=== PATIENT | male | born 1955 | race Caucasian/White ===

== ENCOUNTER → 2020-07-27 14:17 | Outpatient (REF) | payer OTHER, SELFPAY ==
--- NOTE | 2020-07-27 15:00 | CA_ITS ---
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 The visually estimated ejection fraction is between 60-65%. - There is mildly decreased right ventricular systolic function. - There is mild mitral valve regurgitation. - There is mild tricuspid valve regurgitation. Findings Left Ventricle Normal left ventricular cavity size. There is mildly increased left ventricular wall thickness. The left ventricular systolic function is normal. The visually estimated ejection fraction is between 60-65%. There is no evidence of regional wall motion abnormalities. Diastolic function is normal for age. Right Ventricle Normal right ventricular cavity size. There is mildly decreased right ventricular systolic function. Atria The left atrium is normal in size. The right atrium is normal in size. Aortic Valve There is a normal trileaflet aortic valve. There is no aortic valve stenosis. There is no aortic valve regurgitation. Mitral Valve The mitral valve appears normal. There is mild mitral valve regurgitation. There is no mitral valve stenosis. Pulmonic Valve The pulmonic valve was not well visualized. There is trace pulmonic valve regurgitation. Tricuspid Valve Normal tricuspid valve structure. There is mild tricuspid valve regurgitation. The pulmonary artery systolic pressure is normal. Great Vessels The aortic annulus, sinuses of valsalva, and asc aorta are normal in size. Venous The inferior vena cava is normal in size and collapses greater than 50% with inspiration. Pericardium/Pleural There is no evidence of pericardial effusion. Prior Study Comparison No significant change compared to prior study dated: 09/11/2017. Measurements 2D Linear Measurements RVIDd: 2.89 RVIDd Index: 1.36 IVSd: 0.97 0.6-0.9/0.6-1.0 cm LVIDd: 4.51 3.9-5.3/4.2-5.9 cm LVIDd Index: 2.12 2.4-3.2/2.2-3.1 cm/m2 LVIDs: 3.47 2.0-3.6 cm LVPWd: 1.23 0.7-1.1 cm Ao Root: 3.10 2.1-3.5 cm LA Diam: 4.30 2.7-3.8/3.0-4.0 cm LAIDs Index: 2.02 1.5-2.3 cm/m2 LV Mass: 218.65 67-162/88-224 g LV Mass Index: 102.65 43-95/49-115 g/m2 LVOT Diam: 2.20 3.0+(-)1.3 cm 2D Systolic Function EF 4C: 64.70 >55% EF 2C: 62.90 >55% EF BiP: 64.60 >55% Aortic Valve AoV Pk Adrien: 1.22 AoV Mn Adrien: 0.84 AoV VTI: 0.23 AoV Pk Grad: 6.00 Aov Mn Grad: 3.00 OZIEL Cont.VTI: 2.02 LVOT LVOT Pk Adrien: 0.63 LVOT Mn Adrien: 0.45 LVOT VTI: 0.12 LVOT Pk Grad: 2.00 LVOT Mn Grad: 1.00 LVOT Diam: 2.20 LVOT Area: 3.80 Tricuspid Valve TR Pk Adrien: 2.73 TR Pk Grad: 30.00 RA Press: 3.00 RVSP: 33.00 Great Vessels Aorta Ao Root-2D: 3.10 2.0-3.7 cm Ao Asc: 2.90 2.1-3.4 cm Updated in Other Vendor System with Status of Final Lake Nicole MD electronically signed on 07/27/2020 5:28:27 PM with status of Final
== END ==
LOC: HO.CARD 14:17
PROVIDERS: Visit Provider Internal Medicine
DX: I48.91 Unspecified atrial fibrillation (principal); I48.92 Unspecified atrial flutter; Z98.890 Other specified postprocedural states
CPT/HCPCS: 93306

== ENCOUNTER → 2020-08-26 14:33 | Outpatient (BNVA) | payer OTHER, SELFPAY | PROVIDERS: Visit Provider Internal Medicine | DX: Z76.89 Persons encountering health services in other specified circumstances (principal) ==

== ENCOUNTER 2021-02-26 07:21 | Outpatient (REF) | payer MEDICARE, SELFPAY ==
[2021-02-26 07:50] LABS: Hematocrit 44.9 % (42-52); Hemoglobin 14.8 g/dl (14.0-18.0); Mean Platelet Volume 10.2 fL (9.4-12.4); Platelet Count 144 X10*3/uL (160-400); Red Blood Count 4.63 X10*6/uL (4.60-5.80); Red Cell Distribution Width 12.5 % (11.0-16.0); White Blood Count 6.3 X10*3/uL (4.8-10.8)
[2021-02-26 08:16] LABS: Alanine Aminotransferase 23 U/L (0-40); Albumin Level 3.8 g/dL (3.5-5.0); Alkaline Phosphatase 69 U/L (39-117); Anion Gap 12 (12-20); Aspartate Amino Transferase 18 U/L (5-37); Bilirubin Direct < 0.2 mg/dL (0.0-0.5); Bilirubin Total 0.5 mg/dL (0.0-1.0); Blood Urea Nitrogen 17 mg/dL (9-16); Calcium 8.7 mg/dL (8.4-10.2); Carbon Dioxide 30 mmol/L (22-29); Chloride 105 mmol/L (96-108); Cholesterol 242 mg/dL; Estimated Glomerular Filt Rate 58; Glucose Random 123 mg/dL (60-115); HDL Cholesterol 47 mg/dL; LDL Cholesterol Calculated 147 mg/dl; Potassium 4.9 mmol/L (3.3-5.1); Sodium 142 mmol/L (135-145); Total Protein 6.2 g/dL (6.5-8.0); Triglycerides 240 mg/dL
== END 2021-02-26 07:22 | disposition home or self-care (01) ==
LOC: HO.LAB 07:21
PROVIDERS: Visit Provider Internal Medicine
DX: I48.19 Other persistent atrial fibrillation (principal); E78.5 Hyperlipidemia, unspecified
CPT/HCPCS: 36415; 80048; 80061; 80076; 85027

== ENCOUNTER → 2021-03-01 15:07 | Outpatient (BNVA) | payer MEDICARE, SELFPAY | PROVIDERS: Visit Provider Internal Medicine | DX: I48.19 Other persistent atrial fibrillation (principal); I48.3 Typical atrial flutter; I10 Essential (primary) hypertension; E78.5 Hyperlipidemia, unspecified | CPT/HCPCS: 93005; 99212 ==

== ENCOUNTER → 2021-03-25 14:49 | Outpatient (BNVA) | payer MEDICARE, SELFPAY | PROVIDERS: Visit Provider Urology ==

== ENCOUNTER 2021-08-13 13:44 | Emergency (ER) | payer MEDICARE, SELFPAY ==
[2021-08-13 14:48] VITALS: BP 160/81; PULSE 87; RESP 16; TEMP 36.7; O2SAT 97; BMI 30.4
[2021-08-13] MEDS: Lidocaine HCl 1 % MPF 5 ML VIAL SUBCUT (15:17)
--- NOTE | 2021-08-13 15:44 | ED_ITS ---
HPI - Wound/Laceration General Chief Complaint: Extremity Injury, Upper Stated Complaint: rt thumb laceration Time Seen by Provider: 08/13/21 15:11 Source: patient Mode of arrival: ambulatory Limitations: no limitations History of Present Illness HPI narrative: 66-year-old male presenting to the ED with work related injury while he was working on a table saw at approximately 14:00 and he lacerated his finger with the table saw. He denies any other injury complaints or concerns or thoughts of foreign bodies or bony tenderness. He reports he is up-to-date on tetanus/received 5 years ago. Denies any other injury complaints or concerns. Onset (ago): minute(s) (Prior to arrival) Extremity Location: left: hand (Thumb at the ulnar aspect) Place: work Patient tetanus UTD: Yes Context: accidental Associated symptoms: none Treatments prior to arrival: bandage Related Data Previous Rx's Medication Instructions Recorded pravastatin 20 mg tablet 20 mg PO DAILY #90 tab 08/26/20 rivaroxaban 20 mg tablet (Xarelto) 20 mg PO DAILY #90 tab 08/26/20 lisinopril 5 mg tablet 5 mg PO BID #180 tab 04/16/21 metoprolol tartrate 50 mg tablet 50 mg PO .COMPLEX #90 tab 05/10/21 tamsulosin 0.4 mg capsule 0.4 mg PO BEDTIME 30 Days #30 cap 07/01/21 cephalexin 500 mg capsule 500 mg PO Q6H 10 Days #40 cap 08/13/21 Allergies Allergy/AdvReac Type Severity Reaction Status Date / Time atenolol Allergy Unknown not clear Verified 05/25/21 17:13 if really etiologic but associated w dizzy spell; No Known Allergies Allergy Verified 05/25/21 17:13 [No Known Allergies*] Review of Systems Review of Systems: Constitutional : No Fever, No Chills, Cardiovascular : No Chest Pain, No SOB Respiratory : No Dyspnea Gastrointestinal : No abdominal pain Musculoskeletal : No Joint Swelling Skin : positive skin laceration, No Foreign bodies, No rash, No surrounding erythema Neuro : No Weakness, No Numbness/tingling Psych : No SI/HI/thoughts of self injury Yes all other systems are reviewed and are negative [facility] Past Medical History Attestation statement: The following information was validated with the patient. Medical History Alcohol use disorder Benign prostatic hyperplasia (BPH) with urinary urgency Essential hypertension Ex-smoker Other and unspecified hyperlipidemia Persistent atrial fibrillation Typical atrial flutter Surgical History History of cardioversion Hx of colonoscopy Status post catheter ablation of atrial fibrillation Family History Family History Father Hypertension Cancer Mother Hypertension Social History Social History Housing: House Patient Tobacco Use Status: Former Tobacco user Years Smoked: 30 yrs e-Cigarette/Vaping Use: Never Used Second Hand Smoke Exposure: No Advance Directives: No Advance Directives Information Provided: No service: No Current occupational status: employed 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 Blood pressure hypertensive 160/81 Heart rate normal. Respiration rate normal. Temperature normal. Oxygen saturation normal. Appearance: Alert. Oriented X3. No acute distress. Head: Normal external exam. Normocephalic. Atraumatic. Eyes: PERRLA. EOMI. Conjunctiva and sclera normal. Eyelids normal. ENT: Pharynx normal. Uvula midline. Moist mucous membranes. Neck: Normal inspection. Neck supple. FROM. CVS: Normal heart rate and rhythm. Respiratory: No respiratory distress. Painless inspiration. Skin: Skin warm and dry. Normal skin color. Normal skin turgor. To left hand thumb at the ulnar aspect patient has the 2-3 cm intermediate laceration no foreign bodies or bony tenderness is noted. No active bleeding. He is noted to have contused tissue and hematoma right under the fat pad of the thumb. Otherwise no additional rashes/lesions/lacerations noted. Extremities: No lower extremity edema. Extremities exhibit normal range of motion. Extremities nontender. Neuro: Oriented X 3. No motor deficit. No sensory deficit. Reflexes normal. Normal steady gait. No focal neuro deficits noted. Vascular: + radial pulses/+ 2 distal pedal pulses/+2 dorsalis pedis b/l. Normal cap refill. No cyanosis noted to upper extremity nails and lower extremity toes nails. Course Course Course Narrative: Patient now status post laceration repair with 7 sutures placed. Patient tolerated procedure well. No complications. Patient is obtained and tetanus therefore do not have to give again today. Will place in a pressure dressing and DC home with instructions return if any new or worsening symptoms and to follow-up in 10 days for suture removal and to follow up with Work connection before returning on full duty. Patient understands agrees with this plan. MDM - Wound/Laceration Medical Records Attestation: I reviewed the patient's medical records. Lab Data Attestation: I reviewed the patient's lab results. Procedures Laceration Laceration 1: Site: hand (left thumb ) Side (If applicable): left Size (cm): 3 Description: linear Depth: simple, single layer Local Anesthetic: lidocaine 1% Amount of anesthesia used (mL): 3 Pre-repair: wound explored, irrigated extensively, deep structures intact and wound margins revised Skin layer closed with: nylon Size (cm): 5-0 Number of sutures: 7 Technique: simple, interrupted Discharge Plan Discharge Clinical Impression: Work related injury, Finger laceration Patient Disposition: Home, Self-Care Instructions: Finger Laceration (ED), Return to Work Instructions (ED) Prescriptions: New cephalexin 500 mg capsule 500 mg PO Q6H 10 Days Qty: 40 RF: 0 No Action lisinopril 5 mg tablet 5 mg PO BID Qty: 180 RF: 1 metoprolol tartrate 50 mg tablet 50 mg PO .COMPLEX Qty: 90 RF: 3 tamsulosin 0.4 mg capsule 0.4 mg PO BEDTIME 30 Days Qty: 30 RF: 1 Xarelto 20 mg tablet 20 mg PO DAILY Qty: 90 RF: 4 pravastatin 20 mg tablet 20 mg PO DAILY Qty: 90 RF: 4 Referrals: Magdalena Chacon MD [Primary Care Provider] - 2 days Polina Wyatt PA [Emergency Midlevel Provider] - 10 days (for suture removal ) Stand Alone Forms: Work/School Release Print Language: Senegalese
== END 2021-08-13 16:07 | disposition home or self-care (01) ==
PROVIDERS: Emergency Provider Emergency Medicine; PCP Internal Medicine
DX: S61.012A Laceration without foreign body of left thumb without damage to nail, initial encounter (principal); W29.8XXA Contact with other powered hand tools and household machinery, initial encounter; Y93.9 Activity, unspecified; Y92.9 Unspecified place or not applicable; Y99.9 Unspecified external cause status; Z79.01 Long term (current) use of anticoagulants; Z79.899 Other long term (current) drug therapy
CPT/HCPCS: 12042; 99283; 99284

== ENCOUNTER → 2021-08-17 15:30 | Outpatient (BNVA) | payer MEDICARE, SELFPAY | PROVIDERS: PCP Internal Medicine; Visit Provider Urology | DX: N40.1 Benign prostatic hyperplasia with lower urinary tract symptoms (principal); R39.15 Urgency of urination | CPT/HCPCS: 51798; 99212 ==

== ENCOUNTER 2021-08-23 12:25 | Emergency (ER) | payer OTHER, MEDICARE, SELFPAY ==
--- NOTE | 2021-08-23 14:17 | ED.GENADULT ---
HPI - General Adult General Stated complaint: suture removal Time Seen by Provider: 08/23/21 14:16 Source: patient Mode of arrival: ambulatory Limitations: no limitations History of Present Illness HPI narrative: came in for 7 suture removal from the left thumb. Patient sustained laceration to the left thumb last week on Monday while at work patient required 7 sutures here today for removal. Related Data Previous Rx's Medication Instructions Recorded pravastatin 20 mg tablet 20 mg PO DAILY #90 tab 08/26/20 rivaroxaban 20 mg tablet (Xarelto) 20 mg PO DAILY #90 tab 08/26/20 lisinopril 5 mg tablet 5 mg PO BID #180 tab 04/16/21 metoprolol tartrate 50 mg tablet 50 mg PO .COMPLEX #90 tab 05/10/21 cephalexin 500 mg capsule 500 mg PO Q6H 10 Days #40 cap 08/13/21 oxycodone 5 mg tablet 5 mg PO Q6H PRN #14 tab 08/13/21 tamsulosin 0.4 mg capsule 0.4 mg PO BEDTIME 90 Days #90 cap 08/17/21 Allergies Allergy/AdvReac Type Severity Reaction Status Date / Time atenolol Allergy Unknown not clear Verified 08/17/21 15:33 if really etiologic but associated w dizzy spell; No Known Allergies Allergy Verified 08/17/21 15:33 [No Known Allergies*] Review of Systems Review of Systems: All other systems are reviewed and are negative Constitutional: Reports as per HPI and Reports no additional constitutional complaints Eyes: Reports as per HPI and Reports no additional eye complaints Reports system reviewed and no additional complaints, except as documented Cardiovascular: Reports as per HPI and Reports no additional cardiovascular complaints Respiratory: Reports as per HPI and Reports no additional respiratory complaints Gastrointestinal: Reports as per HPI and Reports no additional gastrointestinal complaints Genitourinary: Reports no additional female genitourinary complaints Musculoskeletal: Reports no additional musculoskeletal complaints Skin/Breast: Reports system reviewed and no additional complaints, except as docu Psychiatric: Reports no additional psychiatric complaints Endocrine: Reports no additional endocrine complaints Hematologic/Lymphatic: Reports no additional hematologic/lymphatic complaints Allergic/Immunologic: Reports no additional allergic/immunologic complaints Reports system reviewed and no additional complaints, except as documented and Reports Abnormal speech present [facility] Past Medical History Medical History Alcohol use disorder Benign prostatic hyperplasia (BPH) with urinary urgency Essential hypertension Ex-smoker Other and unspecified hyperlipidemia Persistent atrial fibrillation Typical atrial flutter Surgical History History of cardioversion Hx of colonoscopy Status post catheter ablation of atrial fibrillation Family History Family History Father Hypertension Cancer Mother Hypertension Social History Social History Housing: House Patient Tobacco Use Status: Former Tobacco user Years Smoked: 30 yrs e-Cigarette/Vaping Use: Never Used Second Hand Smoke Exposure: No Advance Directives: No Advance Directives Information Provided: No service: No Current occupational status: employed 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 Blood pressure normal. Heart rate normal. Respiration rate normal. Temperature normal. Oxygen saturation normal. Appearance: Alert. Oriented X3. No acute distress. Head: Normal external exam. Normocephalic. Atraumatic. No Irizarry signs noted. No raccoon eyes noted Eyes: PERRLA. EOMI. Conjunctiva and sclera normal. Eyelids normal. ENT: TM's Normal. Pharynx normal. Uvula midline. Moist mucous membranes. No trismus noted. No drooling noted. No muffled voice noted. Neck: Normal inspection. Neck supple. FROM. No adenopathy. Thyroid Normal. No meningeal signs. No neck mass noted. CVS: Normal heart rate and rhythm. Heart sound normal. No murmurs noted. Pulses normal throughout. Respiratory: No respiratory distress. Painless inspiration. Breath sounds normal. No wheezes/rales/rhonchi noted. Chest nontender. No accessory muscle usage noted or decreased air movement noted. Abdomen: Soft and nontender. Bowel sounds normal in all 4 quadrants. No distention noted. No organomegaly noted. No visible injury noted. Back: No CVA tenderness. Full range of motion noted. Skin: Skin warm and dry. Normal skin color. Normal skin turgor. No rashes/lesions/lacerations noted. Extremities: Left thumb status post suture removal, Cranial nerve exam: II-XII are grossly intact No motor deficit. No sensory deficit. Reflexes normal. Course Course Course Narrative: assessment and plan. 66-year-old male came in for left thumb laceration recheck and removal of 7 sutures. Wound healing well with no sign of infection. Discharge Plan Discharge Clinical Impression: Encounter for removal of sutures Patient Disposition: Home, Self-Care Instructions: Laceration (ED) Prescriptions: No Action lisinopril 5 mg tablet 5 mg PO BID Qty: 180 RF: 1 metoprolol tartrate 50 mg tablet 50 mg PO .COMPLEX Qty: 90 RF: 3 tamsulosin 0.4 mg capsule 0.4 mg PO BEDTIME 90 Days Qty: 90 RF: 3 cephalexin 500 mg capsule 500 mg PO Q6H 10 Days Qty: 40 RF: 0 oxycodone 5 mg tablet 5 mg PO Q6H PRN (Reason: pain) Qty: 14 RF: 0 Xarelto 20 mg tablet 20 mg PO DAILY Qty: 90 RF: 4 pravastatin 20 mg tablet 20 mg PO DAILY Qty: 90 RF: 4 Referrals: Magdalena Chacon MD [Primary Care Provider] - 2 days
--- NOTE | 2021-08-23 14:19 | PC.NURSE ---
pr doctor Bactracin put on wound with bandaid pt tolorated well
[2021-08-23 14:33] VITALS: BP 162/92; PULSE 70; RESP 14; TEMP 35.8; O2SAT 98; BMI 30.8
== END 2021-08-23 14:37 | disposition home or self-care (01) ==
PROVIDERS: Emergency Provider Emergency Medicine; PCP Internal Medicine
DX: S61.012D Laceration without foreign body of left thumb without damage to nail, subsequent encounter (principal); X58.XXXD Exposure to other specified factors, subsequent encounter
CPT/HCPCS: 99283

== ENCOUNTER → 2021-08-31 15:07 | Outpatient (BNVA) | payer MEDICARE, SELFPAY | PROVIDERS: PCP Internal Medicine; Referring Provider Internal Medicine; Visit Provider Internal Medicine | DX: I48.19 Other persistent atrial fibrillation (principal); I48.3 Typical atrial flutter; I10 Essential (primary) hypertension; E78.5 Hyperlipidemia, unspecified | CPT/HCPCS: 99212 ==

== ENCOUNTER → 2022-08-19 15:28 | Outpatient (BNVA) | payer MEDICARE, OTHER, SELFPAY | PROVIDERS: PCP Internal Medicine; Visit Provider Urology | DX: N40.1 Benign prostatic hyperplasia with lower urinary tract symptoms (principal); R39.15 Urgency of urination | CPT/HCPCS: 99212 ==

== ENCOUNTER → 2022-10-03 12:50 | Outpatient (BNVA) | payer MEDICARE, SELFPAY | PROVIDERS: PCP Internal Medicine; Referring Provider Internal Medicine; Visit Provider Internal Medicine | DX: I48.19 Other persistent atrial fibrillation (principal); I48.3 Typical atrial flutter; I10 Essential (primary) hypertension; E78.5 Hyperlipidemia, unspecified; Z79.01 Long term (current) use of anticoagulants; Z79.899 Other long term (current) drug therapy | CPT/HCPCS: 93005; 99212 ==

== ENCOUNTER 2022-11-24 11:31 | Outpatient (REF) | payer MEDICARE, SELFPAY ==
[2022-11-24 12:30] LABS: Alanine Aminotransferase 38 U/L (0-40); Alkaline Phosphatase 58 U/L (39-117); Anion Gap 12 (12-20); Aspartate Amino Transferase 26 U/L (5-37); Bilirubin Total 0.9 mg/dL (0.0-1.0); Blood Urea Nitrogen 19 mg/dL (9-16); Calcium 9.1 mg/dL (8.4-10.2); Carbon Dioxide 30 mmol/L (22-29); Chloride 103 mmol/L (96-108); Cholesterol 263 mg/dL; Estimated Glomerular Filt Rate 48; Glucose Random 145 mg/dL (60-115); HDL Cholesterol 51 mg/dL; LDL Cholesterol Calculated 168 mg/dl; Sodium 140 mmol/L (135-145); Total Protein 6.5 g/dL (6.5-8.0); Triglycerides 220 mg/dL
[2022-11-24 12:39] LABS: Hematocrit 46.6 % (42.0-52.0); Hemoglobin 15.7 g/dl (14.0-18.0); Mean Corpuscular HGB Conc 33.7 g/dl (31.0-36.0); Mean Corpuscular Hemoglobin 32.6 pg (27.0-33.0); Mean Corpuscular Volume 96.7 fL (80.0-98.0); Mean Platelet Volume 10.3 fL (9.4-12.4); Platelet Count 163 X10*3/uL (160-400); Red Blood Count 4.82 X10*6/uL (4.60-5.80); Red Cell Distribution Width 12.8 % (11.0-16.0); White Blood Count 7.6 X10*3/uL (4.8-10.8)
== END 2022-11-24 11:32 | disposition home or self-care (01) ==
LOC: HO.LAB 11:31
PROVIDERS: PCP Internal Medicine; Visit Provider Internal Medicine
DX: I48.19 Other persistent atrial fibrillation (principal); E78.5 Hyperlipidemia, unspecified
CPT/HCPCS: 36415; 80053; 80061; 85027

== ENCOUNTER → 2022-11-30 13:27 | Outpatient (REF) | payer MEDICARE, SELFPAY ==
--- NOTE | 2022-11-30 13:31 | CA_ITS ---
Transthoracic Echocardiogram Patient (Last, First, Middle): Narinder [place] P Gender: Male Date of : 1955 Age: 67 Procedure Date: 11/30/2022 Procedure Type: Transthoracic Echocardiogram Location: OP Height: 177.8 cm Weight: 97.07 kg BSA: 2.15 m2 Heart Rate: 78 bpm BP: 115 / 70 mmHg Senior Mobile Web Developer: NAZ Estrada MD: Lake Nicole MD System Programmer: Man Rees MD Symptoms: I48.19 - Other persistent atrial fibrillation Study Quality: Fair ECG Rhythm: Atrial Fibrillation Conclusions: - 1. Low normal LV systolic function with LVEF of 50-55% 2. Normal cardiac valvular Doppler 3. Normal measured RV systolic pressure 4. No gross pericardial effusion Findings Left Ventricle Normal left ventricular cavity size. There is normal left ventricular wall thickness. The left ventricular systolic function is low normal. The visually estimated ejection fraction is between 50-55%. Diastolic function is indeterminate on the basis of available data. Right Ventricle Normal right ventricular cavity size. There is mildly decreased right ventricular systolic function. Atria The left atrium is normal in size. Interatrial shunt cannot be excluded. The right atrium was not well visualized. Aortic Valve The aortic valve was not well visualized. There is mild calcification of the aortic valve. There is no aortic valve stenosis. There is no aortic valve regurgitation. Mitral Valve The mitral valve was not well visualized. There is trace mitral valve regurgitation. There is no mitral valve stenosis. Pulmonic Valve The pulmonic valve was not well visualized. Tricuspid Valve The tricuspid valve was not well visualized. There is trace tricuspid valve regurgitation. The right ventricular systolic pressure is normal. The right ventricular systolic pressure is 11 mmHg. Great Vessels The aorta was not well visualized. The pulmonary artery was not well visualized. Venous The inferior vena cava is normal in size and collapses greater than 50% with inspiration. Pericardium/Pleural There is no evidence of pericardial effusion. Prior Study Comparison Changes noted compared to prior study dated: 07/27/2020. LV systolic function is depressed now in the low normal range Measurements 2D Linear Measurements IVSd: 0.99 0.6-0.9/0.6-1.0 cm LVIDd: 4.83 3.9-5.3/4.2-5.9 cm LVIDd Index: 2.25 2.4-3.2/2.2-3.1 cm/m2 LVIDs: 3.22 2.0-3.6 cm LVPWd: 1.11 0.7-1.1 cm LA Diam: 4.10 2.7-3.8/3.0-4.0 cm LAIDs Index: 1.91 1.5-2.3 cm/m2 LV Mass: 229.24 67-162/88-224 g LV Mass Index: 106.62 43-95/49-115 g/m2 LVOT Diam: 2.10 3.0+(-)1.3 cm 2D Systolic Function EF 4C: 53.40 >55% EF 2C: 56.40 >55% EF BiP: 54.00 >55% Mitral Valve MV Pk E: 1.00 E'Lateral: 11.00 E'Medial: 9.90 E/E' Med: 10.10 E/E' Lat: 9.00 Aortic Valve AoV Pk Adrien: 1.14 AoV Mn Adrien: 0.84 AoV VTI: 0.24 AoV Pk Grad: 5.00 Aov Mn Grad: 3.00 OZIEL Cont.VTI: 2.01 LVOT LVOT Pk Adrien: 0.72 LVOT Mn Adrien: 0.50 LVOT VTI: 0.14 LVOT Pk Grad: 2.00 LVOT Mn Grad: 1.00 LVOT Diam: 2.10 LVOT Area: 3.46 Diastolic Function MV Pk E: 1.00 E'Medial: 9.90 E/E' Med: 10.10 E' Laterial: 11.00 E/E' Lat: 9.00 Right Ventricle TAPSE (mm): 15.50 TVS' Adrien: 8.76 Tricuspid Valve TR Pk Adrien: 1.43 TR Pk Grad: 8.00 RA Press: 3.00 RVSP: 11.00 Great Vessels Aorta Sinus of Valsalva: 3.40 2.0-3.5 cm Ao Asc: 3.10 2.1-3.4 cm Pulmonary Valve PV Pk Adrien: 0.80 Peak PV Grad: 3.00 Updated in Other Vendor System with Status of Final Man Rees MD electronically signed on 12/02/2022 3:40:42 PM with status of Final
== END ==
LOC: HO.CARD 13:27
PROVIDERS: PCP Internal Medicine; Visit Provider Internal Medicine
DX: I48.19 Other persistent atrial fibrillation (principal)
CPT/HCPCS: 93306

== ENCOUNTER → 2023-01-02 14:21 | Outpatient (BNVA) | payer MEDICARE, SELFPAY | PROVIDERS: PCP Internal Medicine; Referring Provider Internal Medicine; Visit Provider Internal Medicine | DX: I48.19 Other persistent atrial fibrillation (principal); I48.3 Typical atrial flutter; E78.5 Hyperlipidemia, unspecified; I12.9 Hypertensive chronic kidney disease with stage 1 through stage 4 chronic kidney disease, or unspecified chronic kidney disease; N18.9 Chronic kidney disease, unspecified; Z79.01 Long term (current) use of anticoagulants; Z79.899 Other long term (current) drug therapy | CPT/HCPCS: 99212 ==

== ENCOUNTER 2023-02-03 14:10 | Outpatient (REF) | payer MEDICARE, SELFPAY ==
[2023-02-03 15:42] LABS: Cholesterol 151 mg/dL; HDL Cholesterol 45 mg/dL; LDL Cholesterol Calculated 92 mg/dl; Triglycerides 74 mg/dL
[2023-02-03 15:56] LABS: Estimated Average Glucose 120 mg/dL; Hemoglobin A1C 152.6276 umol/L; Hemoglobin A1c % 5.8 %
== END 2023-02-03 14:11 | disposition home or self-care (01) ==
LOC: HO.LAB 14:10
PROVIDERS: PCP Internal Medicine; Visit Provider Internal Medicine
DX: E11.9 Type 2 diabetes mellitus without complications (principal); E78.5 Hyperlipidemia, unspecified
CPT/HCPCS: 36415; 80061; 83036

== ENCOUNTER 2023-07-05 13:16 | Outpatient (AMB) | payer MEDICARE, SELFPAY ==
--- NOTE | 2023-07-05 13:34 | MHC.OFFVIS ---
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 To recall, he has a history of atrial fibrillation and has undergone multiple cardioversions in the past. He has also tried multiple antiarrhythmics including flecainide, Multaq but continued to have recurrence of atrial fibrillation. Then he underwent atrial fibrillation ablation. Over time, he developed atrial flutter. Then underwent cardioversion for the same in 2018. However, this did not last and went back into atrial flutter. He was then referred once again for atrial flutter ablation, but he decided that he would rather not pursue anything. Since then, he has been rate control only. Overall, he is getting along fine. His has recently and after that, he states that he also decided to retire completely from his job. Otherwise, no new cardiac symptoms. [facility] Medical History (Updated 01/02/23 @ 14:58 by Lake Nicole MD) CKD (chronic kidney disease) Difficulty sleeping Alcohol use disorder Benign prostatic hyperplasia (BPH) with urinary urgency Other and unspecified hyperlipidemia Ex-smoker Essential hypertension Typical atrial flutter Persistent atrial fibrillation Surgical History Hx of colonoscopy Status post catheter ablation of atrial fibrillation History of cardioversion Family History Father Hypertension Cancer Mother Hypertension Social History Housing: House Alcohol intake: former Year quit: 2023 Patient Tobacco Use Status: Former Tobacco user Quit Date: 2015 Years Smoked: 30 yrs e-Cigarette/Vaping Use: Never Used Second Hand Smoke Exposure: No service: No Current occupational status: employed 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 Review of Systems Const Denies weakness ENT Denies dizziness Card Denies chest pain, Denies chest pain with activity, Denies syncope, Denies rapid heart rate, Denies pedal edema, Denies edema, Denies leg edema, Denies lightheadedness, Denies palpitations, Denies dyspnea, Denies dyspnea on exertion and Denies orthopnea Resp Denies cough, Denies dyspnea and Denies dyspnea on exertion GI Denies hematochezia and Denies change in stool character Musc Denies abnormal gait, Denies muscle cramps, Denies muscle weakness, Denies numbness, Denies radiating pain into limb and Denies tingling Neuro Denies abnormal gait, Denies dizziness, Denies syncope, Denies numbness, Denies tingling and Denies weakness Endo Denies palpitations Physical Exam Vital Signs: Last Vital Signs Pulse 62 07/05/23 13:35 BP 134/86 07/05/23 13:35 BMI result Body Mass Index 30.6 Const General: comfortable and no acute distress Orientation/consciousness: patient oriented x3 HEENT Other: Unremarkable Head: Yes normal to inspection Neck Neck: Yes normal visual inspection Chest Chest palpation & inspection: normal inspection of the chest Resp Auscultation: clear to auscultation bilaterally Cardio Palpation: normal PMI Heart sounds: S1 normal heart sound present, S2 normal heart sound present, no gallops, no murmurs and no rubs GI Palpation (GI): Soft to palpation Back/Spine/Pelvis Other: unremarkable Skin General skin exam: no rashes or lesions noted Neuro General: patient oriented x3 Extrem General: Yes normal to inspection Psych Mental Status: mental status grossly normal Assessment & Plan Assessment & Plan (1) Persistent atrial fibrillation: Code(s): I48.19 - Other persistent atrial fibrillation Plan: Continue beta-blockers and Xarelto. Check renal function. Based on the creatinine, may need to change the Xarelto dose. (2) Typical atrial flutter: Code(s): I48.3 - Typical atrial flutter Plan: Overall plan as above. (3) Essential hypertension: Code(s): I10 - Essential (primary) hypertension Plan: He was on lisinopril but due to renal insufficiency as well as slight hyperkalemia, it was discontinued. Blood pressure otherwise seems okay. Home blood pressures are apparently lower than this per patient. (4) Other and unspecified hyperlipidemia: Code(s): E78.5 - Hyperlipidemia, unspecified Plan: Continue statins. LDL has improved to 92 mg/dL. Previously 168 mg/dL. (5) CKD (chronic kidney disease): Code(s): N18.9 - Chronic kidney disease, unspecified Plan: Most recent creatinine is 1.48. In the past, 1.25. Lisinopril has been discontinued. Check BMP. Orders: Orders Basic Metabolic Panel Today N18.9 - Chronic kidney disease, unspecified Coding Level of Care Code Est Pt Level 4 (05038) Diagnoses Persistent atrial fibrillation I48.19 Typical atrial flutter I48.3 Essential hypertension I10 Other and unspecified hyperlipidemia E78.5 CKD (chronic kidney disease) N18.9
[2023-07-05 13:35] VITALS: BP 134/86; PULSE 62; BMI 30.6
== END 2023-07-05 13:50 | disposition home or self-care (01) ==
PROVIDERS: PCP Internal Medicine; Referring Provider Internal Medicine; Visit Provider Internal Medicine
DX: I48.19 Other persistent atrial fibrillation (principal); I48.3 Typical atrial flutter; I12.9 Hypertensive chronic kidney disease with stage 1 through stage 4 chronic kidney disease, or unspecified chronic kidney disease; E78.5 Hyperlipidemia, unspecified; N18.9 Chronic kidney disease, unspecified
CPT/HCPCS: 99214

== ENCOUNTER → 2023-07-05 13:16 | Outpatient (BNVA) | payer MEDICARE, SELFPAY | PROVIDERS: PCP Internal Medicine; Referring Provider Internal Medicine; Visit Provider Internal Medicine | DX: I48.19 Other persistent atrial fibrillation (principal); I48.3 Typical atrial flutter; I12.9 Hypertensive chronic kidney disease with stage 1 through stage 4 chronic kidney disease, or unspecified chronic kidney disease; N18.9 Chronic kidney disease, unspecified; E78.5 Hyperlipidemia, unspecified | CPT/HCPCS: 99212 ==

== ENCOUNTER 2023-11-06 12:57 | Outpatient (REF) | payer MEDICARE, SELFPAY ==
[2023-11-06 14:39] LABS: Prostate Specific Antigen 0.32 ng/mL (<0.05-4.0)
[2023-11-11 14:29] LABS: Testosterone, Total 269 ng/dL (250-1100)
== END 2023-11-06 12:58 | disposition home or self-care (01) ==
LOC: HO.LAB 12:57
PROVIDERS: PCP Internal Medicine; Visit Provider Urology
DX: N40.1 Benign prostatic hyperplasia with lower urinary tract symptoms (principal); R39.15 Urgency of urination; Z12.5 Encounter for screening for malignant neoplasm of prostate
CPT/HCPCS: 36415; 84153; 84403

== ENCOUNTER 2023-11-28 13:40 | Outpatient (AMB) | payer MEDICARE, SELFPAY ==
--- NOTE | 2023-11-28 13:40 | A.OFFVIS_ITS ---
Intake Intake Visit Reasons: 1Y PSA/Testosterone(set) Intake Note: Patient is Present for Follow Up labs Urology Medication: Tamsulosin Antibiotic Allergies: None Blood Thinners: Xarelto PVR: Allergies No Known Allergies Allergy (Verified 11/28/23 13:43) HPI HPI Comments History of Present Illness Details Narinder is a pleasant male. He is a patient of Dr. Chacon. He is seen for the following urologic conditions - BPH - prior history of urinary retention Stable Continue tamsulosin Low PSA over age 60 No need to check PSA yearly Lower urinary tract symptoms Prior history of urinary retention Symptoms well managed with Flomax PSA 08/07 0.49, 08/10 0.27, 11/15 0.3 Would like to remain on current therapy Therapeutic plan - yearly follow-up with PVR PFSH Medical History CKD (chronic kidney disease) Difficulty sleeping Alcohol use disorder Benign prostatic hyperplasia (BPH) with urinary urgency Other and unspecified hyperlipidemia Ex-smoker Essential hypertension Typical atrial flutter Persistent atrial fibrillation Surgical History Hx of colonoscopy Status post catheter ablation of atrial fibrillation History of cardioversion Family History Father Hypertension Cancer Mother Hypertension Social History Housing: House Alcohol intake: former Year quit: 2022 Patient Tobacco Use Status: Former Tobacco user Quit Date: 2015 Years Smoked: 30 yrs e-Cigarette/Vaping Use: Never Used Second Hand Smoke Exposure: No service: No Current occupational status: employed 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 Review of Systems Const Denies chills and Denies fever(s) Card Reports no additional complaints and Denies syncope Resp Denies cough GI Denies abdominal pain and Denies heartburn Reports as per HPI and Denies change in libido Neuro Denies syncope Psych Denies change in libido Endo Denies change in libido Physical Exam Const General: cooperative, healthy appearing, comfortable and no acute distress Orientation/consciousness: patient oriented x3 HEENT Face and sinus: Yes normal facial exam Mouth: moist mucous membranes Neck Neck: Yes normal visual inspection, Yes full ROM and Yes trachea midline Chest Chest palpation & inspection: normal inspection of the chest Resp Effort & Inspection: normal respiratory effort, able to speak in complete sentences and no respiratory distress GI Inspection: Yes normal to inspection Back/Spine/Pelvis Cervical Spine: normal cervical lordosis Thoracic/Lumbar Spine: thoracic and lumbar spine normal to inspection Skin General skin exam: no rashes or lesions noted Neuro General: patient oriented x3, gait normal, tone normal and moves all extremities Extrem General: Yes normal to inspection and Yes capillary refill normal Assessment & Plan Assessment & Plan (1) Benign prostatic hyperplasia (BPH) with urinary urgency: Code(s): N40.1 - Benign prostatic hyperplasia with lower urinary tract symptoms; R39.15 - Urgency of urination Plan Twelve month follow-up tele Orders: Orders AMB Post Void Residual by ultrasound Today N40.1 - Benign prostatic hyperplasia with lower urinary tract symptoms, R39.15 - Urgency of urination Medications: Changed From tamsulosin 0.4 mg PO BEDTIME 30 days 30 caps 1RF N40.1 - Benign prostatic hyperplasia with lower urinary tract symptoms, R39.15 - Urgency of urination To tamsulosin 0.4 mg PO BEDTIME 90 caps 3RF 90 days N40.1 - Benign prostatic hyperplasia with lower urinary tract symptoms, R39.15 - Urgency of urination Patient Instructions: Imaging studies, laboratory and physical exam results were discussed and reviewed in detail. No major barriers to patient understanding were identified. An opportunity to ask questions regarding the treatment plan was provided. All questions were answered. The patient expressed understanding and agreement with the above treatment plan. The patient is aware they should contact our office by phone for worsening of their current condition or the appearance of new urologic symptoms. Compliance is encouraged with any medications and followup testing that is ordered. It is a privilege to participate in the urologic care of your patient. If you have any questions or concerns regarding treatment for the above conditions, or other urologic issues, please do not hesitate to contact me. The office telephone contact is [phone]. This note is constructed using voice recognition software. While every effort has been made to ensure accuracy wheel and pinion inspector errors may have been included. Yours sincerely, Dr Zay Telles MD, [facility] - Urology Providers of Expert, Compassionate Care for the Genitourinary System Coding Level of Care Code Est Pt Level 4 (77079) Diagnoses Benign prostatic hyperplasia (BPH) with urinary urgency N40.1; R39.15
== END 2023-11-28 14:19 | disposition home or self-care (01) ==
LOC: HO.HUSH 13:40
PROVIDERS: PCP Internal Medicine; Visit Provider Urology
DX: N40.1 Benign prostatic hyperplasia with lower urinary tract symptoms (principal); R39.15 Urgency of urination
CPT/HCPCS: 99213

== ENCOUNTER → 2023-11-28 13:40 | Outpatient (BNVA) | payer MEDICARE, SELFPAY | PROVIDERS: PCP Internal Medicine; Visit Provider Urology | DX: N40.1 Benign prostatic hyperplasia with lower urinary tract symptoms (principal); R39.15 Urgency of urination | CPT/HCPCS: 99212 ==

== ENCOUNTER 2024-01-23 14:27 | Outpatient (AMB) | payer MEDICARE, SELFPAY ==
[2024-01-23 14:44] VITALS: BP 158/100; PULSE 55; BMI 31.5
--- NOTE | 2024-01-23 14:44 | MHC.OFFVIS ---
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 To recall, he has a history of atrial fibrillation and has undergone multiple cardioversions in the past. He has also tried multiple antiarrhythmics including flecainide, Multaq but continued to have recurrence of atrial fibrillation. Then he underwent atrial fibrillation ablation. Over time, he developed atrial flutter. Then underwent cardioversion for the same in 2018. However, this did not last and went back into atrial flutter. He was then referred once again for atrial flutter ablation, but he decided that he would rather not pursue anything. Since then, he has been rate control only. Since last seen, no new concerns. He seems to be doing fine. [facility] Medical History CKD (chronic kidney disease) Difficulty sleeping Alcohol use disorder Benign prostatic hyperplasia (BPH) with urinary urgency Other and unspecified hyperlipidemia Ex-smoker Essential hypertension Typical atrial flutter Persistent atrial fibrillation Surgical History Hx of colonoscopy Status post catheter ablation of atrial fibrillation History of cardioversion Family History Father Hypertension Cancer Mother Hypertension Social History Housing: House Alcohol intake: former Year quit: 2022 Patient Tobacco Use Status: Former Tobacco user Quit Date: 2015 Years Smoked: 30 yrs e-Cigarette/Vaping Use: Never Used Second Hand Smoke Exposure: No service: No Current occupational status: employed 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 Review of Systems Const All systems reviewed & are unremarkable except as noted in HPI and below Reports as per HPI and Reports no additional complaints Eyes Reports as per HPI and Denies no additional complaints ENT Denies no additional complaints and Reports as per HPI Card Reports as per HPI, Reports no additional complaints, Denies acrocyanosis, Denies chest pain, Denies leg edema, Denies lightheadedness, Denies palpitations and Denies dyspnea Resp Reports as per HPI, Denies no additional complaints and Denies dyspnea GI Reports as per HPI and Denies no additional complaints Reports no additional complaints and Reports as per HPI Musc Reports no additional complaints and Reports as per HPI Skin/Breast Reports system reviewed and no additional complaints, except as documented Neuro Reports no additional complaints and Reports as per HPI Psych Reports no additional complaints and Reports as per HPI Endo Reports no additional complaints, Reports as per HPI and Denies palpitations Jadiel/Lymph Reports no additional complaints and Reports as per HPI Aller/Immun Reports no additional complaints and Reports as per HPI Physical Exam Vital Signs: Last Vital Signs Pulse 55 01/23/24 14:44 BP 158/100 H 01/23/24 14:44 BMI result Body Mass Index 31.5 Const General: comfortable and no acute distress Orientation/consciousness: patient oriented x3 HEENT Other: Unremarkable Head: Yes normal to inspection Neck Neck: Yes normal visual inspection Chest Chest palpation & inspection: normal inspection of the chest Resp Auscultation: clear to auscultation bilaterally Cardio Palpation: normal PMI Heart sounds: S1 normal heart sound present, S2 normal heart sound present, no gallops, no murmurs and no rubs GI Palpation (GI): Soft to palpation Back/Spine/Pelvis Other: unremarkable Skin General skin exam: no rashes or lesions noted Neuro General: patient oriented x3 Extrem General: Yes normal to inspection Psych Mental Status: mental status grossly normal Office Procedures EKG Details: EKG with atrial fibrillation rate of 55/Min. No significant ST-T changes and otherwise unremarkable. [id number], Complete Assessment & Plan Assessment & Plan (1) Persistent atrial fibrillation: Code(s): I48.19 - Other persistent atrial fibrillation Plan: Continue beta-blockers and Xarelto. Check BNP. Depending on creatinine clearance, may need to decrease dose. (2) Typical atrial flutter: Code(s): I48.3 - Typical atrial flutter Plan: Overall plan as above. (3) Essential hypertension: Code(s): I10 - Essential (primary) hypertension Plan: Blood pressure is high today. In the past, he was on lisinopril but stopped because of renal insufficiency/borderline potassium. We can add amlodipine 5 mg daily. Advised to do home blood pressures and report to us. We can make changes accordingly. He understands. (4) Other and unspecified hyperlipidemia: Code(s): E78.5 - Hyperlipidemia, unspecified Plan: Continue statins. LDL has improved to 92 mg/dL. Previously 168 mg/dL. (5) CKD (chronic kidney disease): Code(s): N18.9 - Chronic kidney disease, unspecified Plan: Most recent creatinine is 1.48. In the past, 1.25. Lisinopril has been discontinued. Recheck BNP. If necessary, we will send to Nephrology for consultation. Medications: New amlodipine 5 mg PO DAILY 90 tabs 3RF Coding Level of Care Code Est Pt Level 4 (94756) Diagnoses Persistent atrial fibrillation I48.19 Typical atrial flutter I48.3 Essential hypertension I10 Other and unspecified hyperlipidemia E78.5 CKD (chronic kidney disease) N18.9 CPT Codes EKG - CPT: 44020-[id number], Complete ([id number])
== END 2024-01-23 15:21 | disposition home or self-care (01) ==
PROVIDERS: PCP Internal Medicine; Visit Provider Internal Medicine
DX: I48.19 Other persistent atrial fibrillation (principal); I48.3 Typical atrial flutter; I12.9 Hypertensive chronic kidney disease with stage 1 through stage 4 chronic kidney disease, or unspecified chronic kidney disease; E78.5 Hyperlipidemia, unspecified; N18.9 Chronic kidney disease, unspecified
CPT/HCPCS: 93010; 99214

== ENCOUNTER → 2024-01-23 14:27 | Outpatient (BNVA) | payer MEDICARE, SELFPAY | PROVIDERS: PCP Internal Medicine; Visit Provider Internal Medicine | DX: I48.19 Other persistent atrial fibrillation (principal); I48.3 Typical atrial flutter; I12.9 Hypertensive chronic kidney disease with stage 1 through stage 4 chronic kidney disease, or unspecified chronic kidney disease; N18.9 Chronic kidney disease, unspecified; E78.5 Hyperlipidemia, unspecified | CPT/HCPCS: 93005; 99212 ==

== ENCOUNTER 2024-03-07 12:45 | Outpatient (AMB) | payer MEDICARE, SELFPAY ==
[2024-03-07 12:55] VITALS: BP 116/74; PULSE 72; O2SAT 99; BMI 32.1
--- NOTE | 2024-03-07 12:55 | A.OFFPC_ITS ---
Vital Signs 03/07/24 12:55 Height 5 ft 10.5 in Intake Visit Reasons: SWV G0439 Allergies No Known Allergies Allergy (Verified 01/23/24 14:44) Tobacco use date assessed: 05/25/21 COUNT INCLUDES THE [facility] Medical History (Updated 02/29/24 @ 18:04 by Magdalena Chacon MD) Hyperlipidemia CKD (chronic kidney disease) Difficulty sleeping Alcohol use disorder Benign prostatic hyperplasia (BPH) with urinary urgency Other and unspecified hyperlipidemia Ex-smoker Essential hypertension Typical atrial flutter Persistent atrial fibrillation Surgical History Hx of colonoscopy Status post catheter ablation of atrial fibrillation History of cardioversion Family History Father Hypertension Cancer Mother Hypertension Social History Housing: House Alcohol intake: former Year quit: 2022 Patient Tobacco Use Status: Former Tobacco user Quit Date: 2015 Years Smoked: 30 yrs e-Cigarette/Vaping Use: Never Used Second Hand Smoke Exposure: No service: No Current occupational status: employed 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
--- NOTE | 2024-03-07 12:58 | AM.OFFVISMDC ---
Intake Vital Signs 03/07/24 12:55 Height 5 ft 10.5 in Weight 227 lb BMI 32.1 BP 116/74 Blood Pressure Location Lt brachial Position Sitting Pulse 72 Pulse Source Pulse Oximeter Pulse Oximetry (%) 99 Oxygen Delivery Method Room Air Intake Visit Reasons: SWV G0439 Intake Note: Pt is here today for his SWV Allergies No Known Allergies Allergy (Verified 03/07/24 18:11) Medication List - Last Reconciled 03/07/24 by Magdalena Chacon MD amlodipine 5 mg PO DAILY metoprolol tartrate 100 mg PO BID rivaroxaban (Xarelto) 20 mg PO QPM rosuvastatin (Crestor) 20 mg PO DAILY tamsulosin 0.4 mg PO BEDTIME 90 days trazodone 50 mg PO BEDTIME PRN HPI SWV G0439 HPI Details SWV ? 69 year old male presents for his subsequent annual wellness visit. He has hypertension, currently stable controlled on present treatment, has benign prostatic hyperplasia, currently followed by Dr. Telles. He is currently being followed by Cardiology for his atrial fibrillation/atrial flutter status post cardiac ablation several times , now on rate control and receiving anticoagulation. He had a fasting lipid panel and fasting blood sugar checks done 02/03/2023 with normal findings Had a screening colonoscopy done by Dr. Doherty in 2013, due this year. He is has had 4 COVID vaccine, not interested in getting the booster, up-to-date with his Shingrix vaccination, influenza gets yearly and up-to-date with his Tdap and pneumo coccal vaccine. ? Medical / Social History Reviewed? Past Medical History ?Yes . ? C[place]il Dehe of Care / Care Team list updated ?Yes . ? Surgical/Hospitalization History ?Yes . ? Current Medications (including OTC and supplements) ?Yes . ? Family History ?Yes . ? Tobacco Control form ?Yes . ? AUDIT-C (Alcohol use) form ?Yes . ? Illicit drug use in Social History ?Yes . ? Current diagnosis of depression? ?No ? Appropriate PHQ2/PHQ9 completed ?Yes . ? Data entered by ?[employer] and reviewed by provider ? Fall Risk ? Fall History? Have you had any falls with injury in the past year? ?No . ? Have you had two or more falls in the past year? ?No . ? Fall Risk Assessment: ?No falls in the past year . ? HRA filled out by the patient, reviewed by Provider and scanned. ?SWV ? Balance? Romberg ?Yes . ? Tandem walk ?Yes . ? Walk and Turn ?Yes . ? Rise from sit to stand ?Yes . ?Vision? Corrective lens ?- no , currently looking for an eye doctor that will be covered by his insurance ? Vision screen ?Hearing? Whisper test ?pass . ?Written Plan?Completed. See Patient Documents.? HPI Comments History of Present Illness Details He also would like to be referred to a helix coil winder, would like to have several skin lesions on his back and on his face checked [facility] Medical History (Updated 03/07/24 @ 18:19 by Magdalena Chacon MD) History of alcohol use disorder Hyperlipidemia CKD (chronic kidney disease) Difficulty sleeping Benign prostatic hyperplasia (BPH) with urinary urgency Other and unspecified hyperlipidemia Ex-smoker Essential hypertension Typical atrial flutter Persistent atrial fibrillation Surgical History Hx of colonoscopy Status post catheter ablation of atrial fibrillation History of cardioversion Family History Father Hypertension Cancer Mother Hypertension Social History Housing: House Alcohol intake: former Year quit: 2022 Patient Tobacco Use Status: Former Tobacco user Quit Date: 2015 Years Smoked: 30 yrs e-Cigarette/Vaping Use: Never Used Second Hand Smoke Exposure: No service: No Current occupational status: employed 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 Questionnaire Medicare Wellness Checkup What [age] What gender do you identify with?: male During the past 4 weeks, how much have you been bothered by emotional problems such as feeling anxious, depressed, irritable, sad or downhearted, and blue?: slightly During the past 4 weeks, has your physical & emotional health limited your social activities with family, friends, neighbors, or groups?: not at all During the past 4 weeks, how much bodily pain have you generally had?: mild pain During the past 4 weeks, was someone available to help you if you needed & wanted help?: yes, a little During the past 4 weeks, what was the hardest physical activity you could do for at least 2 minutes?: moderate Can you get to places out of walking distance without help? (For eg., can you travel alone on buses, taxis or drive your car?): Yes Can you go shopping for groceries or clothes without someone's help?: Yes Can you prepare your own meals?: Yes Can you do your housework without help?: Yes Because of any health problems, do you need the help of another person with your personal care needs such as eating, bathing, dressing or getting around the house?: No Can you handle your own money without help?: Yes During the past 4 weeks, how would you rate your health in general?: good During the past 4 weeks how have things been going for you?: good & bad parts about equal Are you having difficulties driving your car?: no Do you always fasten your seat belt when you are in a car?: yes, usually During past 4 weeks, have you been bothered by the following: never: Teeth or denture problems? and Problems using the telephone?, seldom: Trouble eating well?, sometimes: Falling or dizzy when standing up and Tiredness or fatigue? and always: Sexual problems? Have you fallen 2 or more times in the past year?: No Are you afraid of falling?: No Are you a smoker?: no During the past 4 weeks, how many drinks of wine, beer, or other alcoholic beverages did you have?: 10 or more per week Do you exercise for about 20 minutes 3 or more times a week?: yes, all the time Have you been given information to help with the following?: no: Hazards in your house that might hurt you? and no: Keeping track of your medications? How often do you have trouble taking medicines the way you have been told to take them?: I seldom take medications as prescribed How confident are you that you can control & manage most of your health problems?: very confident What is your race?: White Mini Mental State Exam (MMSE) Orientation What is the (year) (season) (date) (day) (month)?: year (2023), season (Spring), date (03/07/2024) and day () Where are we (state) (county) (town or city) (hospital) (floor)?: state ([place]), formerly [facility], [facility] ([place]), town or city ([place]) and hospital/clinic ([facility]) Score Score: 8 Activity of Daily Living Bathing - sponge bath, tub bath or shower: receives no assistance (gets in/out by self, if usual bathing means Dressing - getting clothes from closets & drawers, including inner/outer garments & fasteners.: gets clothes & gets completely dressed without help Toileting - going to the 'toilet room' for urine/bowel elimination & cleaning self/arranging clothes: goes to toilet room, cleans self, arranges clothes without help Transfer: moves in & out of bed and chair without help (may use support object) Continence: controls urination/bowel movements completely by self Feeding: feeds self without help Total Score: 0 Information obtained from: patient Using telephone: independent Traveling: independent Shopping: independent Preparing meals: independent Housework: independent Taking medicine: independent Managing money: independent PHQ-9 Over the last 2 weeks, how often have you been bothered by any of the following problems? 1. Little interest or pleasure in doing things: not at all 2. Feeling down, depressed, or hopeless: not at all 3. Trouble falling or staying asleep, or sleeping too much: several days 4. Feeling tired or having little energy: not at all 5. Poor appetite or overeating: not at all 6. Feeling bad about yourself - or that you are a failure or have let yourself or your family down: not at all 7. Trouble concentrating on things, such as reading the newspaper or watching television: not at all 8. Moving or speaking so slowly that other people could have noticed. Or the opposite - being so fidgety or restless that you have been moving around a lot more than usual: not at all 9. Thoughts that you would be better off or of hurting yourself in some way: not at all Total score: 1 Depression Screening Interpretation: Negative Depression Screening Done: Yes 30385 - PHQ-9 Billing: Yes Source: Developed by Drs. Wilian Spann, Rose Downing, Lewis Donahue and colleagues, with an educational ketty from [employer]. Review of Systems Const All systems reviewed & are unremarkable except as noted in HPI and below Physical Exam Vital Signs: Last Vital Signs Pulse 72 03/07/24 12:55 BP 116/74 03/07/24 12:55 Pulse Ox 99 03/07/24 12:55 Oxygen Delivery Method Room Air 03/07/24 12:55 BMI result Body Mass Index 32.1 Const Other: Alert oriented x3, no acute distress noted ambulatory normal gait Skin Other: Scattered hyperpigmented slightly raised dry patches on back and chest, with several high per pigmented macules with irregular margins noted on chest, face and lower back Assessment & Plan Assessment & Plan (1) Skin lesion of back: Code(s): L98.9 - Disorder of the skin and subcutaneous tissue, unspecified Plan: Referral to [facility] for further evaluation and management (2) Encounter for screening for malignant neoplasm of colon: Code(s): Z12.11 - Encounter for screening for malignant neoplasm of colon Plan: Referred to [facility] for his screening colonoscopy (3) Hyperlipidemia: Code(s): E78.5 - Hyperlipidemia, unspecified Plan: Currently on rosuvastatin 20 mg daily (4) Benign prostatic hyperplasia (BPH) with urinary urgency: Code(s): N40.1 - Benign prostatic hyperplasia with lower urinary tract symptoms; R39.15 - Urgency of urination Plan: Followed by Dr. Telles (5) Essential hypertension: Code(s): I10 - Essential (primary) hypertension Plan: Followed by cardiology currently on amlodipine and metoprolol (6) Persistent atrial fibrillation: Code(s): I48.19 - Other persistent atrial fibrillation Plan: Followed by cardiology currently on Xarelto and metoprolol tartrate 100 mg 1 tablet twice a day (7) Encounter for subsequent annual wellness visit (AWV) in Medicare patient: Code(s): Z00.00 - Encounter for general adult medical examination without abnormal findings Plan: Medical wellness checklist discussed with patient, reviewed and updated. He is overdue for his screening colonoscopy referred to [facility] for his repeat screening. Patient currently looking for an eye doctor that will take his insurance for his routine eye exam. Up-to-date with all his vaccinations, up-to-date with his advanced directives Orders: Referrals Dermatology Referral L98.9 - Disorder of the skin and subcutaneous tissue, unspecified Gastroenterology Referral Z12.11 - Encounter for screening for malignant neoplasm of colon Quality Reporting (2019) Depression/Bipolar (159/160/161/177) PHQ-9: Total score: 1 Coding Level of Care Code Medicare Subsequent (G0439) Est Pt Level 3 (97894) Diagnoses Skin lesion of back L98.9 Encounter for screening for malignant neoplasm of colon Z12.11 Hyperlipidemia E78.5 Benign prostatic hyperplasia (BPH) with urinary urgency N40.1; R39.15 Essential hypertension I10 Persistent atrial fibrillation I48.19 Encounter for subsequent annual wellness visit (AWV) in Medicare patient Z00.00 CPT Codes Advance Care Planning - Advance Care Planning discussion: On file, no changes ([id number]) Advance Care Planning - Time spent: 1-15 minutes, on File ([id number]) Advance Care Planning Advance Care Planning discussion: On file, no changes Date of discussion: 09/01/22 Who was present: Patient Forms completed: Health Care Proxy and MOLST Time spent: 1-15 minutes, on File Actual minutes spent: 15
== END 2024-03-07 14:48 | disposition home or self-care (01) ==
PROVIDERS: PCP Internal Medicine; Visit Provider Internal Medicine
DX: Z00.00 Encounter for general adult medical examination without abnormal findings (principal); L98.9 Disorder of the skin and subcutaneous tissue, unspecified; I10 Essential (primary) hypertension; E78.5 Hyperlipidemia, unspecified; I48.19 Other persistent atrial fibrillation; R39.15 Urgency of urination; Z12.11 Encounter for screening for malignant neoplasm of colon; N40.1 Benign prostatic hyperplasia with lower urinary tract symptoms
CPT/HCPCS: 1123F; 99213; G0439

== ENCOUNTER 2025-05-22 10:44 | Outpatient (AMB) | payer MEDICARE, SELFPAY ==
--- NOTE | 2025-05-22 10:46 | A.OFFVIS_ITS ---
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 70 year old male presents for his subsequent annual wellness visit. He has hypertension, currently stable on present treatment, has benign prostatic hyperplasia, currently followed by Dr. Telles. He is currently being followed by Cardiology for his atrial fibrillation/atrial flutter status post cardiac ablation several times , on rivaroxaban 20 mg daily. He had a fasting lipid panel and fasting blood sugar checks done 02/03/2023 with normal findings Had a screening colonoscopy done by Dr. Doherty in 2013, overdue for a recheck. Was referred last year to [facility], but patient had to cancel the appointment , but has not been able to reach them to reschedule appointment. Requesting to be referred to a different GI clinic. He is has had 4 COVID vaccine, not interested in getting the booster, up-to-date with his Shingrix vaccination, influenza gets yearly and up-to-date with his Tdap and pneumococcal vaccine. ? Medical / Social History Reviewed? Past Medical History ?Yes . ? [place] of Care / Care Team list updated ?Yes . ? Surgical/Hospitalization History ?Yes . ? Current Medications (including OTC and supplements) ?Yes . ? Family History ?Yes . ? Tobacco Control form ?Yes . ? AUDIT-C (Alcohol use) form ?Yes . ? Illicit drug use in Social History ?Yes . ? Current diagnosis of depression? ?No ? Appropriate PHQ2/PHQ9 completed ?Yes . ? Data entered by ?Police Inspector and reviewed by provider ? Fall Risk ? Fall History? Have you had any falls with injury in the past year? ?No . ? Have you had two or more falls in the past year? ?No . ? Fall Risk Assessment: ?No falls in the past year . ? HRA filled out by the patient, reviewed by Provider and scanned. ?SWV ? Balance? Romberg ?negative. ? Tandem walk ?Yes . ? Walk and Turn ?Yes . ? Rise from sit to stand ?Yes . ?Vision? Corrective lens ?- no , currently looking for an eye doctor that will be covered by his insurance, states he will be calling [facility] to schedule appointment ? Vision screen ?Hearing? Whisper test ?patient wears hearing aids ?Written Plan?Completed. Completed healthcare proxy form and MOLST form on previous visit? [facility] Medical History (Updated 05/22/25 @ 12:10 by Magdalena Chacon MD) Chronic insomnia History of adenomatous polyp of colon History of alcohol use disorder Hyperlipidemia CKD (chronic kidney disease) Benign prostatic hyperplasia (BPH) with urinary urgency Other and unspecified hyperlipidemia Ex-smoker Essential hypertension Typical atrial flutter Persistent atrial fibrillation Surgical History Hx of colonoscopy Status post catheter ablation of atrial fibrillation History of cardioversion Family History Father Hypertension Cancer Mother Hypertension Social History Housing: House Alcohol intake: former Year quit: 2022 Patient Tobacco Use Status: Former Tobacco user Years Smoked: 30 yrs e-Cigarette/Vaping Use: Never Used Second Hand Smoke Exposure: No service: No Current occupational status: employed 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 Medicare Wellness Checkup What [age] What gender do you identify with?: male During the past 4 weeks, how much have you been bothered by emotional problems such as feeling anxious, depressed, irritable, sad or downhearted, and blue?: slightly During the past 4 weeks, has your physical & emotional health limited your social activities with family, friends, neighbors, or groups?: not at all During the past 4 weeks, how much bodily pain have you generally had?: mild pain During the past 4 weeks, was someone available to help you if you needed & wanted help?: yes, a little During the past 4 weeks, what was the hardest physical activity you could do for at least 2 minutes?: moderate Can you get to places out of walking distance without help? (For eg., can you travel alone on buses, taxis or drive your car?): Yes Can you go shopping for groceries or clothes without someone's help?: Yes Can you prepare your own meals?: Yes Can you do your housework without help?: Yes Because of any health problems, do you need the help of another person with your personal care needs such as eating, bathing, dressing or getting around the house?: No Can you handle your own money without help?: Yes During the past 4 weeks, how would you rate your health in general?: good During the past 4 weeks how have things been going for you?: good & bad parts about equal Are you having difficulties driving your car?: no Do you always fasten your seat belt when you are in a car?: yes, usually During past 4 weeks, have you been bothered by the following: never: Teeth or denture problems? and Problems using the telephone?, seldom: Trouble eating well?, sometimes: Falling or dizzy when standing up and Tiredness or fatigue? and always: Sexual problems? Have you fallen 2 or more times in the past year?: No Are you afraid of falling?: No Are you a smoker?: no During the past 4 weeks, how many drinks of wine, beer, or other alcoholic beverages did you have?: 10 or more per week Do you exercise for about 20 minutes 3 or more times a week?: yes, all the time Have you been given information to help with the following?: no: Hazards in your house that might hurt you? and no: Keeping track of your medications? How often do you have trouble taking medicines the way you have been told to take them?: I seldom take medications as prescribed How confident are you that you can control & manage most of your health problems?: very confident What is your race?: White Mini Mental State Exam (MMSE) Orientation What is the (year) (season) (date) (day) (month)?: year (2024), season (summer), date (05/22/2025), day () and month (april) Where are we (state) (county) (town or city) (hospital) (floor)?: state ([place]), [facility] ([place]), town or city ([place]) and hospital/clinic ([facility]) Score Score: 9 Activity of Daily Living Bathing - sponge bath, tub bath or shower: receives no assistance (gets in/out b y self, if usual bathing means Dressing - getting clothes from closets & drawers, including inner/outer garments & fasteners.: gets clothes & gets completely dressed without help Toileting - going to the 'toilet room' for urine/bowel elimination & cleaning self/arranging clothes: goes to toilet room, cleans self, arranges clothes without help Transfer: moves in & out of bed and chair without help (may use support object) Continence: controls urination/bowel movements completely by self Feeding: feeds self without help Total Score: 0 Information obtained from: patient Using telephone: independent Traveling: independent Shopping: independent Preparing meals: independent Housework: independent Taking medicine: independent Managing money: independent PHQ-9 Over the last 2 weeks, how often have you been bothered by any of the following problems? 1. Little interest or pleasure in doing things: not at all 2. Feeling down, depressed, or hopeless: not at all 3. Trouble falling or staying asleep, or sleeping too much: several days 4. Feeling tired or having little energy: not at all 5. Poor appetite or overeating: not at all 6. Feeling bad about yourself - or that you are a failure or have let yourself or your family down: not at all 7. Trouble concentrating on things, such as reading the newspaper or watching television: not at all 8. Moving or speaking so slowly that other people could have noticed. Or the opposite - being so fidgety or restless that you have been moving around a lot more than usual: not at all 9. Thoughts that you would be better off or of hurting yourself in some way : not at all Total score: 1 Depression Screening Interpretation: Negative Depression Screening Done: Yes 42049 - PHQ-9 Billing: Yes Source: Developed by Drs. Wilian Spann, Rose Downing, Lewis Donahue and colleagues, with an educational ketty from [employer]. Physical Exam Vital Signs: Last Vital Signs Temp 97.8 F 05/22/25 10:48 Pulse 78 05/22/25 10:48 BP 130/82 05/22/25 10:48 Pulse Ox 97 05/22/25 10:48 Oxygen Delivery Method Room Air 05/22/25 10:48 BMI result Body Mass Index 30.9 Assessment & Plan Assessment & Plan (1) Encounter for subsequent annual wellness visit in Medicare patient: Code(s): Z00.00 - Encounter for general adult medical examination without abnormal findings Plan: Medical wellness checklist reviewed, discussed with patient and updated. Up-to-date with his MOLST and healthcare proxy form. Up-to-date with his vaccines but does not want getting any further COVID vaccine, reminded to get his yearly flu shot. Referred to Dr. Reeder for his repeat colonoscopy screening. (2) Persistent atrial fibrillation: Code(s): I48.19 - Other persistent atrial fibrillation Plan: Currently on rivaroxaban 20 mg 1 tablet daily and metoprolol tartrate 100 mg 1 tablet twice a day (3) Essential hypertension: Code(s): I10 - Essential (primary) hypertension Plan: On amlodipine 5 mg once a day (4) Benign prostatic hyperplasia (BPH) with urinary urgency: Code(s): N40.1 - Benign prostatic hyperplasia with lower urinary tract symptoms; R39.15 - Urgency of urination Plan: Followed by Urology, last prostate check was within normal limits. (5) CKD (chronic kidney disease): Code(s): N18.9 - Chronic kidney disease, unspecified Plan: Ordered repeat basic metabolic panel (6) Hyperlipidemia: Code(s): E78.5 - Hyperlipidemia, unspecified Plan: Ordered a fasting lipid panel, and liver enzymes. Currently on rosuvastatin 20 mg daily (7) History of adenomatous polyp of colon: Comment: [place] [address] Doherty Code(s): Z86.0101 - Personal history of adenomatous and serrated colon polyps Plan: Patient states he has not yet heard from [facility] about getting another appointment to scheduled for his colonoscopy ordered a year ago. Will refer to Dr. Reeder for his screening colonoscopy. (8) Chronic insomnia: Code(s): F51.04 - Psychophysiologic insomnia Plan: Continued on trazodone 50 mg at bedtime as needed Orders: Orders Lipid Panel Today E78.5 - Hyperlipidemia, unspecified, I10 - Essential (primary) hypertension, I48.19 - Other persistent atrial fibrillation, N18.9 - Chronic kidney disease, unspecified, N40.1 - Benign prostatic hyperplasia with lower urinary tract symptoms, R39.15 - Urgency of urination, Z00.00 - Encounter for general adult medical examination without abnormal findings, Z86.0101 - Personal history of adenomatous and serrated colon polyps Aspartate Amino Transferase Today E78.5 - Hyperlipidemia, unspecified, I10 - Essential (primary) hypertension, I48.19 - Other persistent atrial fibrillation, N18.9 - Chronic kidney disease, unspecified, N40.1 - Benign prostatic hyperplasia with lower urinary tract symptoms, R39.15 - Urgency of urination, Z00.00 - Encounter for general adult medical examination without abnormal findings, Z86.0101 - Personal history of adenomatous and serrated colon polyps Basic Metabolic Panel Fasting Today E78.5 - Hyperlipidemia, unspecified, I10 - Essential (primary) hypertension, I48.19 - Other persistent atrial fibrillation, N18.9 - Chronic kidney disease, unspecified, N40.1 - Benign prostatic hyperplasia with lower urinary tract symptoms, R39.15 - Urgency of urination, Z00.00 - Encounter for general adult medical examination without abnormal findings, Z86.0101 - Personal history of adenomatous and serrated colon polyps Alanine Aminotransferase Today E78.5 - Hyperlipidemia, unspecified, I10 - Essential (primary) hypertension, I48.19 - Other persistent atrial fibrillation, N18.9 - Chronic kidney disease, unspecified, N40.1 - Benign prostatic hyperplasia with lower urinary tract symptoms, R39.15 - Urgency of urination, Z00.00 - Encounter for general adult medical examination without abnormal findings, Z86.0101 - Personal history of adenomatous and serrated colon polyps Referrals Gastroenterology Referral Z86.0101 - Personal history of adenomatous and serrated colon polyps Medications: Refilled trazodone 50 mg PO BEDTIME PRN 30 tabs 5RF for insomnia Quality Reporting (2019) Depression/Bipolar (159/160/161/177) PHQ-9: Total score: 1 Coding Level of Care Code Medicare Subsequent (G0439) Diagnoses Encounter for subsequent annual wellness visit in Medicare patient Z00.00 Persistent atrial fibrillation I48.19 Essential hypertension I10 Benign prostatic hyperplasia (BPH) with urinary urgency N40.1; R39.15 CKD (chronic kidney disease) N18.9 Hyperlipidemia E78.5 History of adenomatous polyp of colon Z86.0101 Chronic insomnia F51.04 CPT Codes Advance Care Planning - Advance Care Planning discussion: On file, no changes ([id number]) Advance Care Planning - Time spent: 1-15 minutes, on File ([id number]) Additional Codes PHQ-9 - 69373 - PHQ-9 Billing: Yes ([id number]) Advance Care Planning Advance Care Planning discussion: On file, no changes Date of discussion: 05/22/25 Who was present: patient Forms completed: Health Care Proxy and MOLST Time spent: 1-15 minutes, on File Actual minutes spent: 1
[2025-05-22 10:48] VITALS: BP 130/82; PULSE 78; TEMP 36.6; O2SAT 97; BMI 30.9
--- OUTSIDE RECORDS SUMMARY | 2025-05-22 11:33 | XMS_ITS | Encounter Summary ---
Author Organization [facility] Address [address] [place] [id number] Care Team Providers Care Manager Embalmer Funeral Director Name Role Phone Joaquin Mondragon MD Primary Care Provider [phone] Encounter Details Date Type Department Care Team (Late st Contact Info) Description 04/12/2018 Scanned Document [facility] [place] [address] [id number] [place] MD [address] [place] [id number] Social History Tobacco Use Types Packs/Day Years Used Date Smoking Tobacco: Never Assessed Sex and Gender Information Value Date Recorded Sex Assigned at Not on file Legal Sex Male 1:56 PM EDT Gender Identity Not on file Sexual Orientation Not on file documented as of this encounter Plan of Treatment Not on file documented as of this encounter Visit Diagnoses Not on filedocumented in this encounter Care Teams Manager Embalmer Funeral Director Relationship Specialty Start Date End Date Joaquin Mondragon MD [address] [place] [address] [place] [id number] PCP - General Internal Medicine 04/20/18 documented as of this encounter
--- OUTSIDE RECORDS SUMMARY | 2025-05-22 11:33 | XMS_ITS | Clinical Summary ---
Author Organization [facility] ity Address [address] [place] [address] Care Team Providers Care Crepe Sole Wire Brusher Name Role Phone Unavailable Primary Care Provider Unavailabl e Social History Tobacco Use Types Packs/Day Years Used Date Smoking Tobacco: Never Assessed Sex and Gender Information Value Date Recorded Sex Assigned at Not on file Legal Sex Male 8:26 PM EST Gender Identity Not on file Sexual Orientation Not on file Plan of Treatment Health Maintenance Due Date Last Done Comments DTaP,Tdap,and Td Vaccines (1 - Tdap) 02/04/1975 Pneumococcal Vaccine: 50+ Ye ars (1 of 1 - PCV) 02/04/2006 Zoster Vaccines (1 of 2) 02/04/2006 COVID-19 Vaccine (1 - 2023-2 5 season) 2024 Depression Screening 10/23/2024 Influenza Vaccine (#1) 2025 RSV Immunization Adult Patie nts (1 - 1-dose 75+ series) 02/04/2031 HIB Vaccines Aged Out No longer eligi ble based on patient's age to complete this topic HPV Vaccines Aged Out No longer eligi ble based on patient's age to complete this topic Hepatitis A Vaccines Aged Out No long er eligible based on patient's age to complete this topic Hepatitis B Vaccines Aged Out No long er eligible based on patient's age to complete this topic IPV Vaccines Aged Out No longer eligi ble based on patient's age to complete this topic MMR Vaccines Aged Out No longer eligi ble based on patient's age to complete this topic Meningococcal ACWY Vaccine Aged Out N o longer eligible based on patient's age to complete this topic Meningococcal B Vaccine Aged Out No l onger eligible based on patient's age to complete this topic RSV Immunization Patients Un chalo 20 months Aged Out No longer eligible b ased on patient's age to complete this topic Varicella Vaccines Aged Out No longer eligible based on patient's age to complete this topic
== END 2025-05-22 11:22 | disposition home or self-care (01) ==
LOC: HO.HMCC 10:45
PROVIDERS: PCP Internal Medicine; Visit Provider Internal Medicine
DX: Z00.00 Encounter for general adult medical examination without abnormal findings (principal); I48.19 Other persistent atrial fibrillation; I12.9 Hypertensive chronic kidney disease with stage 1 through stage 4 chronic kidney disease, or unspecified chronic kidney disease; N18.9 Chronic kidney disease, unspecified; N40.1 Benign prostatic hyperplasia with lower urinary tract symptoms; R39.15 Urgency of urination; E78.5 Hyperlipidemia, unspecified; Z86.0101 Personal history of adenomatous and serrated colon polyps; F51.04 Psychophysiologic insomnia

== ENCOUNTER → 2025-05-22 10:44 | Outpatient (BNVA) | payer MEDICARE, SELFPAY | PROVIDERS: PCP Internal Medicine; Visit Provider Internal Medicine | DX: Z00.00 Encounter for general adult medical examination without abnormal findings (principal); I48.19 Other persistent atrial fibrillation; N40.1 Benign prostatic hyperplasia with lower urinary tract symptoms; R39.15 Urgency of urination; I12.9 Hypertensive chronic kidney disease with stage 1 through stage 4 chronic kidney disease, or unspecified chronic kidney disease; N18.9 Chronic kidney disease, unspecified; E78.5 Hyperlipidemia, unspecified; F51.04 Psychophysiologic insomnia; Z86.0101 Personal history of adenomatous and serrated colon polyps; Z79.899 Other long term (current) drug therapy | CPT/HCPCS: 96127 ==